=== PATIENT | female | born 1945 | race Caucasian/White ===

== ENCOUNTER 2022-03-02 07:23 | Emergency (ER) | payer MEDICARE, SELFPAY ==
[2022-03-02 07:28] VITALS: BP 186/80; PULSE 59; RESP 16; TEMP 36.6; O2SAT 96; BMI 25.0
--- NOTE | 2022-03-02 07:35 | XR_ITS ---
WS: [id number] Exam: XR shoulder LT min 2V* [id number] Date/Time of Exam: 03/02/2022 7:42 AM Reason For Exam: pain/deformity There is anterior inferior dislocation of the humeral head. No obvious fracture identified. Soft tiss ues are unremarkable. XR/XR shoulder LT min 2V* [id number] IMPRESSION: 1. Anterior inferior dislocation of the humeral head. No obvious fracture.
--- NOTE | 2022-03-02 07:36 | ED_ITS ---
HPI - Extremity Problem General: Chief complaint: Extremity Injury, Upper Stated complaint: FALL Time Seen by Provider: 03/02/22 07:35 Source: patient Mode of arrival: ambulatory History of Present Illness: 76-year-old female presents emergency room after a fall at home. She stumbled and slipped on a wet floor she fell attempted to break her fall with her left arm she is complaining of pain in her left shoulder. She has some chronic dizziness issues but she states that really was not why she fell. No other injury she did not strike her head she did not lose consciousness. She arrives via EMS having received intranasal fentanyl and having a sling applied in route. MD Complaint: extremity pain Onset (ago): minute(s) Pain Consistency: constant Location: left and upper extremity Quality: sharp Relieving factors: rest Exacerbating factors: range of motion and palpation Associated symptoms: Deny chest pain, fever(s) or rash Context: other (Fall) Review of Systems Const: Denies: fever(s), chills, body aches, change in appetite, fatigue or malaise ENMT: Denies: throat pain, ear or mastoid pain, nasal discharge or nasal congestion Card: Denies: chest pain, palpitations, irregular heart rhythm, edema, dyspnea on exertion or orthopnea Resp: Denies: dyspnea, productive cough or non-productive cough GI: Denies: abdominal pain, nausea, vomiting, hematemesis, coffee ground emesis, diarrhea, constipation, bloating, hematochezia or melena : Denies: flank pain, difficulty voiding, dysuria, urinary frequency or urinary urgency Skin/Breast: Denies: rash or pruritus [facility] PFSH: Medical History (Updated 03/12/22 @ 17:51 by Storm Contreras DO) Greater tuberosity of humerus fracture Shoulder pain Physical Exam Const: COMMON NORMALS: no acute distress GENERAL APPEARANCE: cooperative and comfortable ORIENTATION/CONSCIOUSNESS: Yes awake, Yes oriented to person, Yes oriented to place and Yes oriented to time HENMT: COMMON NORMALS: normocephalic and atraumatic HEAD & SCALP: normocephalic and atraumatic Resp: COMMON NORMALS: normal respiratory effort, No retractions, No use of accessory muscles and clear to auscultation bilaterally AUSCULTATION: clear to auscultation bilaterally Cardio: COMMON NORMALS: regular rate, regular rhythm and No murmurs present (Cardio) RATE: regular rate RHYTHM: regular rhythm GI: COMMON NORMALS: Soft to palpation and No hepatosplenomegaly present AUSCULTATION: Yes normoactive bowel sounds PALPATION: Yes Soft to palpation, No Tenderness to palpation present (GI), No Guarding due to palpation present (GI) and Yes No hepatosplenomegaly present Extremity: COMMON NORMALS: normal to inspection, capillary refill normal, no clubbing, cyanosis or edema, no calf tenderness and no pedal edema Neuro: SENSORIUM/ORIENTATION: Yes oriented to person, Yes oriented to place and Yes oriented to time Skin: COMMON NORMALS: no rashes or lesions noted GENERAL SKIN EXAM: no rashes or lesions noted Procedures Orthopedic Joint Reduction Joint #1: Time Out Performed: Yes Side: left Joint Reduction Location: shoulder Analgesia: procedural sedation Technique used: traction/counter-traction Post-reduction neuro exam: intact Post-reduction vascular: intact Post Reduction X-Ray Obtained: Yes Post Reduction X-Ray Results: reduced Splint Applied: Yes (Shoulder immobilizer) Patient Tolerated Procedure: well Procedural Sedation Indication: fracture/dislocation reduction Preparation: cardiac rehabilitation specialist applied, pulse oximeter, supplemental O2 applied, suction/airway equipment at bedside and IV secured Fentanyl: IV Midazolam: IV Patient Tolerated Procedure: well Complications: none Course Vital Signs: Vital signs: Vital Signs Temperature 97.8 F 03/02/22 07:28 Pulse Rate 71 03/02/22 10:33 Respiratory Rate 16 03/02/22 09:29 Blood Pressure 139/77 03/02/22 10:33 Pulse Oximetry 93 03/02/22 10:33 Oxygen Delivery Me thod 03/02/22 08:06 MDM - Extremity (Nontraumatic) Medical Decision Making Procedural sedation with traction countertraction along with manipulation of the humeral head was able to reduce. Postreduction there appears to be some cortical avulsions. Patient placed in a shoulder immobilizer and referred to orthopedics. We will also set her up for an MRI of the shoulder. Medical Records I reviewed the patient's medical records. Lab Data I reviewed the patient's lab results. Radiology Impressions Shoulder X-Ray 03/02/22 08:16 IMPRESSION: 1. Satisfactory reduction of previously reported anterior dislocation. 2. Small cortical fracture along the humeral head with several fragments. Discharge Plan Discharge Patient Disposition: Home Clinical Impression: Dislocation of shoulder region Condition: Stable Prescriptions: New tramadol 50 mg tablet 50 mg PO Q6H PRN (Reason: pain) Qty: 20 0RF No Action (DME) SLING. See Rx Instructions .ROUTE .MEDSUPPLY Qty: 1 0RF Rx Instructions: As directed prednisone 10 mg tablet See Rx Instructions .ROUTE .COMPLEX Rx Instructions: DIRECTED lisinopril 20 mg tablet 20 mg PO DAILY torsemide 10 mg tablet 10 mg PO DAILY tramadol 50 mg tablet 50 mg PO Q6H PRN (Reason: Pain) sodium bicarbonate 650 mg tablet 650 mg PO BID gabapentin 300 mg capsule 300 mg PO BEDTIME ergocalciferol (vitamin D2) 1,250 mcg (50,000 unit) capsule 1,250 mcg PO Q14D cyclobenzaprine 5 mg tablet 5 mg PO TID PRN (Reason: Muscle Spasm) metoprolol tartrate 25 mg tablet 25 mg PO BID Discharge Orders: Discharge ED (Routine); Ordered 03/02/22 Ordered By: Fernando Mcwilliams Referrals: [facility] [Other] Patient Instructions: Opioid Safety, Pain Management Activity Restrictions/Additional Instructions: Keep left arm in shoulder immobilizer until seen by orthopedics. Do not use left arm. Case management make arrangements for an MRI and follow-up with orthopedics. Coding Level of Care Code ED Algebra Tutor for Sheree Baca Exam Detailed
[2022-03-02 07:50] VITALS: RESP 18; O2SAT 100
[2022-03-02] MEDS: ondansetron 2 mg/ML SDV 2 mL 4 MG IVP (07:50)
[2022-03-02] MEDS: morphine 4 mg/mL SDV 1 mL IVP (07:50)
--- NOTE | 2022-03-02 08:00 | PC.PHAR ---
PT UNABLE TO VERIFY MEDS- NO CONTACTS AVAILABLE- MEDICATIONS VERIFIED USING EXTERNAL MED LIST
[2022-03-02 08:06] VITALS: BP 186/80; PULSE 69; RESP 14; RESP 18; O2SAT 100
[2022-03-02] MEDS: fentaNYL 50 mcg/mL INJ 2mL 25 MCG IVP (08:06)
[2022-03-02] MEDS: midazolam 1 mg/mL INJ 2 mL 3 MG IVP (08:06)
--- NOTE | 2022-03-02 08:16 | XR_ITS ---
WS: [id number] Exam: XR shoulder LT min 2V* [id number] Date/Time of Exam: 03/02/2022 8:17 AM Reason For Exam: post reduction Previously noted left shoulder dislocation has been reduced. Articular relationships at been restored . There is cortical fracture along the humeral head with several fracture fragments. AC kash nt arthrosis. XR/XR shoulder LT min 2V* [id number] IMPRESSION: 1. Satisfactory reduction of previously reported anterior dislocation. 2. Small cortical fracture along the humeral head with several fragme nts.
--- NOTE | 2022-03-02 08:45 | PC.NURSE ---
VERSED DOSE CHANGED FROM 5MG TO 3MG VERBALLY BY DR. SANCHEZ AT BEDSIDE. FENTANYL DOSE CHANGED FROM 100MCG TO 25MCG VERBALLY BY DR. SANCHEZ AT BEDSIDE. MEDICATIONS WASTED AFTER SEDATION PROCEDURE. MEDICATIONS WASTED WITH Dustin SCHILLING RN PHARMACY NOTIFIED.
[2022-03-02 08:51] VITALS: BP 130/80; PULSE 70; O2SAT 97
[2022-03-02 09:29] VITALS: BP 115/83; PULSE 66; RESP 16; O2SAT 100
[2022-03-02 10:33] VITALS: BP 139/77; PULSE 71; O2SAT 93
--- NOTE | 2022-03-03 13:52 | DCPLANNER ---
Addendum entered by Barb Romeo 05/17/22 12:15: MRI was cancelled Addendum entered by Barb Romeo 03/31/22 05:44: Patient had a follow up appointment scheduled for 03.08.[address] Contreras at ortho - patient did attend appointment. Original Note: market manager had message to schedule a follow up appointment for patient with ortho. market manager sent patients information to the front office staff at ortho. Patients information will be printed and reviewed. Clinic will call patient with appointment information. market manager also had message to schedule an outpatient MRI for patient. market manager faxed signed order to centralized scheduling, who will call patient with appointment.
== END 2022-03-02 10:25 | disposition home or self-care (01) ==
PROVIDERS: Emergency Provider Family Medicine
DX: S43.005A Unspecified dislocation of left shoulder joint, initial encounter (principal); W01.0XXA Fall on same level from slipping, tripping and stumbling without subsequent striking against object, initial encounter
CPT/HCPCS: 23650; 73030; 96374; 96375; 99285; J2250; J2270; J2405; J3010

== ENCOUNTER → 2022-03-08 10:38 | Outpatient (BNVA) | payer MEDICARE, SELFPAY | PROVIDERS: Visit Provider Student in an Organized Health Care Education/Training Program | DX: S43.002A Unspecified subluxation of left shoulder joint, initial encounter (principal); S42.252A Displaced fracture of greater tuberosity of left humerus, initial encounter for closed fracture; W18.39XA Other fall on same level, initial encounter | CPT/HCPCS: 73020 ==

== ENCOUNTER 2022-03-08 14:49 | Outpatient (CLI) | payer MEDICARE, SELFPAY | END 2022-03-08 14:50 | disposition home or self-care (01) | LOC: SPT 14:50 | PROVIDERS: Visit Provider Student in an Organized Health Care Education/Training Program | DX: Z46.89 Encounter for fitting and adjustment of other specified devices (principal); S43.005D Unspecified dislocation of left shoulder joint, subsequent encounter; X58.XXXD Exposure to other specified factors, subsequent encounter | CPT/HCPCS: 97760; 99204; A4565 ==

== ENCOUNTER → 2022-03-22 10:16 | Outpatient (BNVA) | payer MEDICARE, SELFPAY | PROVIDERS: Visit Provider Student in an Organized Health Care Education/Training Program | DX: S42.252A Displaced fracture of greater tuberosity of left humerus, initial encounter for closed fracture (principal); S43.002A Unspecified subluxation of left shoulder joint, initial encounter; X58.XXXA Exposure to other specified factors, initial encounter | CPT/HCPCS: 73030; 99213 ==

== ENCOUNTER → 2022-04-12 08:07 | Outpatient (BNVA) | payer MEDICARE, SELFPAY | PROVIDERS: Visit Provider Student in an Organized Health Care Education/Training Program | DX: S42.252A Displaced fracture of greater tuberosity of left humerus, initial encounter for closed fracture (principal); S43.002A Unspecified subluxation of left shoulder joint, initial encounter; X58.XXXA Exposure to other specified factors, initial encounter | CPT/HCPCS: 73030; 99213 ==

== ENCOUNTER → 2022-06-10 09:33 | Outpatient (BNVA) | payer MEDICARE, SELFPAY | PROVIDERS: Visit Provider Student in an Organized Health Care Education/Training Program | DX: S42.252A Displaced fracture of greater tuberosity of left humerus, initial encounter for closed fracture (principal); M75.101 Unspecified rotator cuff tear or rupture of right shoulder, not specified as traumatic; X58.XXXA Exposure to other specified factors, initial encounter | CPT/HCPCS: 73030; 99213 ==

== ENCOUNTER 2022-07-06 09:56 | Outpatient (CLI) | payer MEDICARE, SELFPAY ==
--- NOTE | 2022-07-06 09:51 | MR_ITS ---
WS: [id number] EXAMINATION: MR shoulder LT wo con* [id number] ORDER DATE: 07/06/2022 10:33 AM COMPARISON: None. HISTORY: humerus fracture CONTRAST: None. TECHNIQUE: Axial T2 STAR, coronal proton density fat sat, sagittal T2 fat sat, sagittal proton densit y fat sat, axial proton density fat sat, coronal T2 fat sat, and coronal T1 performed. After contrast , axial T1 fat sat, coronal T1 fat sat, and sagittal T1 fat sat were performed. FINDINGS: Previously described avulsion involving the greater tuberosity. Avulsed fragment displaced into the s ubacromial space deep to the AC joint. This is similar in appearance to the prior radiographs. Modera te to advanced degenerative arthritis AC joint with downsloping of the acromion. Severe narrowing of the distal subacromial space. Complete high-grade tear of the supraspinatus. No normal fibers visuali zed distally. Retraction to the AC joint. High-grade tear of the infraspinatus tendon. Atrophy of the supraspinatus and infraspinatus muscle be llies. Normal teres minor. Distal subscapularis appears intact with tendinopathy. Biceps tendon is in tact within the bicipital groove. Medial dislocation of the biceps tendon from the bicipital groove p roximally. Partial-thickness intrasubstance tear involving the intra-articular biceps tendon. Degenerative frayi ng of the glenoid labrum. Normal bone marrow signal in the glenoid. MR/MR shoulder LT wo con* [id number] IMPRESSION: 1. Displaced avulsion fracture greater tuberosity. Fragment displaced into in the subacromial space deep to the AC joint unchanged since the prior radiograph s. 2. High-grade complete appearing tear distal supraspinatus and infraspinatus w ith loss of the subacromial space. 3. Moderate degenerative arthritis AC joint with downsloping acromion with mil d edema. 4. Tendinopathy in the subscapularis. 5. Medial dislocation of the biceps tendon from the bicipital groove with part ial intrasubstance tear intra-articular biceps tendon
== END 2022-07-06 09:57 | disposition home or self-care (01) ==
LOC: RAD 09:57
PROVIDERS: PCP Family Medicine; Visit Provider Student in an Organized Health Care Education/Training Program
DX: S42.122D Displaced fracture of acromial process, left shoulder, subsequent encounter for fracture with routine healing (principal); X58.XXXD Exposure to other specified factors, subsequent encounter; M75.122 Complete rotator cuff tear or rupture of left shoulder, not specified as traumatic; M19.012 Primary osteoarthritis, left shoulder
CPT/HCPCS: 73221

== ENCOUNTER → 2022-07-29 08:24 | Outpatient (BNVA) | payer MEDICARE, SELFPAY | PROVIDERS: PCP Family Medicine; Visit Provider Student in an Organized Health Care Education/Training Program | DX: S42.252A Displaced fracture of greater tuberosity of left humerus, initial encounter for closed fracture (principal); M75.102 Unspecified rotator cuff tear or rupture of left shoulder, not specified as traumatic; X58.XXXA Exposure to other specified factors, initial encounter | CPT/HCPCS: 99214 ==

== ENCOUNTER 2022-09-13 15:45 | Outpatient (CLI) | payer MEDICARE, SELFPAY ==
--- NOTE | 2022-09-13 16:00 | CT_ITS ---
WS: [id number] NONCONTRAST CT OF THE LEFT SHOULDER. TECHNIQUE: Noncontrast CT LEFT shoulder with coronal and sagittal reformatted images. CLINICAL INFORMATION: S42.253A - Displaced fracture of greater tuberosity of un... COMPARISON: MRI July 06, 2022 DLP: 348.[address] scans at [facility] use at least one of these dose optimization techniques: automated e xposure control; mA and/or kV adjustment per patient size (includes targeted exams where dose is matc hed to clinical indication); or iterative reconstruction. FINDINGS: Moderate degenerative arthritis AC joint with narrowing of the subacromial space. Mild downsloping of the acromion. Rotator cuff tears as described on the prior MRI. Avulsion fracture of the greater tub erosity displaced into the subacromial space at the level of the glenohumeral joint. Displaced fragme nt measures 2.8 cm. Small joint effusion. Distal clavicle appears normal. Scapula appears normal. Normal bony glenoid. No rmal coracoid. Visualized LEFT ribs are normal. Slight atelectasis or fibrosis LEFT lower lobe. Simmons otomy. Aortic calcification. CT/CT shoulder LT wo con* [id number] IMPRESSION: 1. Avulsion fracture greater trochanter displaced into the subacromial space a t the level of the glenohumeral joint measuring 2.8 cm. 2. No other visualized fractures. 3. Rotator cuff tears as described on the recent MRI. 4. No other acute findings.
== END 2022-09-13 15:46 | disposition home or self-care (01) ==
PROVIDERS: PCP Family Medicine; Visit Provider Student in an Organized Health Care Education/Training Program
DX: S42.252A Displaced fracture of greater tuberosity of left humerus, initial encounter for closed fracture (principal); X58.XXXA Exposure to other specified factors, initial encounter
CPT/HCPCS: 73200

== ENCOUNTER 2022-09-21 10:18 | Day surgery (SDC) | payer MEDICARE, SELFPAY ==
[2022-09-16 09:09] VITALS: BMI 24.3
--- NOTE | 2022-09-16 09:15 | ECG_ITS ---
[facility] Test Date: 2022-09-16 Pat Name: Geno Cisneros Department: Room: Gender: Female Medication Specialist: : 1945 Requested By: Federico Hernandez Order Number: [id number] Brett MD: Terrance Liu M.D. Measurements Intervals [place] Rate: 65 P: 35 [place]: 188 QRS: 0 QRSD: 90 T: 59 QT: 417 QTc: 436 Interpretive Statements SINUS RHYTHM LEFT VENTRICULAR HYPERTROPHY AND ST-T CHANGE [VOLTAGE CRITERIA PLUS ST/T ABNORMALITY] POSSIBLE INFERIOR MYOCARDIAL INFARCTION , OF INDETERMINATE AGE [30 ms Q WAVE IN II/aVF] No previous ECG available for comparison Electronically Signed On 09-16-2022 11:59:56 CDT by Terrance Liu M.D. [email or web address]
[2022-09-16 09:54] LABS: Basophils # 0.1 10^3/uL (0.0-0.1); Basophils % 0.6 %; Eosinophils # 0.2 10^3/uL (0.0-0.8); Eosinophils % 2.2 %; Hematocrit 41.8 % (37.0-47.0); Hemoglobin 13.1 g/dL (11.5-15.3); Lymphocytes # 2.9 10^3/uL (0.8-4.8); Lymphocytes % 32.4 %; Mean Corpuscular HGB Conc 31.3 g/dL (30.0-36.0); Mean Corpuscular Volume 92.7 fl (81-99); Mean Platelet Volume 9.5 fL (7.4-10.4); Monocytes # 0.7 10^3/uL (0.2-0.9); Monocytes % 8.2 %; Neutrophils # 5.02 10^3/uL (1.8-7.7); Neutrophils % 56.2 %; Nucleated Red Blood Cells % 0 %; Platelet Count 280 10^3/cmm (130-400); Red Blood Count 4.51 10^6/uL (4.1-5.3); Red Cell Distribution Width 13.3 % (12.1-15.1); White Blood Count 8.9 10^3/uL (4.0-10.0)
[2022-09-16 10:10] LABS: Anion Gap 16.3 (5-19); Blood Urea Nitrogen 32 mg/dL (8-23); Calcium 9.7 mg/dL (8.5-10.5); Carbon Dioxide 28 mmol/L (22-29); Chloride 103 mmol/L (98-107); Glucose 99 mg/dL (65-115); Osmolality Calculated 301 mOsm/kg (285-295); Potassium 5.3 mmol/L (3.5-5.1); Sodium 142 mmol/L (136-145)
--- NOTE | 2022-09-16 10:26 | ANES.PREANE2 ---
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 several days Was Beta Letty taken within 24 hours: Yes Was Clonidine taken within 24 hours: N/A Social No alcohol and No tobacco Exam alert, oriented x 3, clear to auscultation bilaterally and regular rate & rhythm Airway Submandibular: within normal limits Cervical ROM: within normal limits Mallampati: Class II Dentition: false CV/HEM Hypertension AVR Chronic Renal Insufficiency Anesthetic Plan ASA status: 3 Anesthesia: General and Regional (specify below) (Interscalene nerve blk) Medications/Allergies Home Medications Medication Instructions Recorded Confirmed Last Taken Type ergocalciferol (vitamin D2) 1,250 1,250 mcg PO Q14D 03/02/22 09/16/22 09/12/22 History mcg (50,000 unit) capsule gabapentin 300 mg capsule 300 mg PO BID PRN Pain 03/02/22 09/16/22 09/02/22 History lisinopril 20 mg tablet 20 mg PO DAILY 03/02/22 09/16/22 09/16/22 History metoprolol tartrate 25 mg tablet 25 mg PO BID 03/02/22 09/16/22 09/16/22 History sodium bicarbonate 650 mg tablet 650 mg PO BID 03/02/22 09/16/22 09/16/22 History torsemide 10 mg tablet 10 mg PO DAILY 03/02/22 09/16/22 09/16/22 History SLING. #1 ea 03/08/22 07/29/22 Unknown Rx acetaminophen 650 mg 1,300 mg PO Q12H PRN Pain 09/16/22 09/16/22 09/16/22 History tablet,extended release aspirin 81 mg chewable tablet 81 mg PO DAILY 09/16/22 09/16/22 09/09/22 History (Aspirin Childrens) magnesium 250 mg tablet 250 mg PO DAILY 09/16/22 09/16/22 09/16/22 History Allergies Allergy/AdvReac Type Severity Reaction Status Date / Time hydrocodone Allergy ADR-Nausea Verified 09/16/22 09:01 Sulfa (Sulfonamide Allergy ALGY-Hives Verified 09/16/22 09:01 Antibiotics) [facility] Anesthesia Medical History Greater tuberosity of humerus fracture Rotator cuff tear Shoulder pain Data Anesthesia 09/16/22 09:45 09/16/22 09:45 Short CBC 09/16/22 Range/Units 09:45 WBC 8.9 (4.0-10.0) 10^3/uL Hgb 13.1 (11.5-15.3) g/dL Hct 41.8 (37.0-47.0) % MCV 92.7 (81-99) fl Plt Count 280 (130-400) 10^3/cmm Neut % (Auto) 56.2 % Neut # (Auto) 5.02 (1.8-7.7) 10^3/uL BMP 09/16/22 09:45 Sodium 142 Potassium 5.3 H Chloride 103 Carbon Dioxide 28 BUN 32 H Creatinine 1.8 H Glucose 99 Calcium 9.7 Cardiac Studies: No Data to Display
[2022-09-21 10:44] VITALS: BP 207/99; PULSE 62; RESP 16; TEMP 36.6; O2SAT 99
[2022-09-21 11:46] LABS: Add Urine Microscopic? YES; Bilirubin Urine Neg (Negative); Blood Urine Neg (Negative); Glucose Urine UA Norm (Normal); Ketones Urine Negative (Negative); Leukocyte Esterase Urine 2+ (Negative); Nitrate Urine Negative (Negative); Protein Urine Neg (Negative); Urine Appearance Cloudy (CLEAR); Urine Color Yellow (Yellow); Urobilinogen Urine Norm (Negative); pH Urine 6 (5-7)
[2022-09-21 11:47] LABS: Bacteria Urine 1+ /hpf; RBC Urine 0-4 /hpf (0-2); Red Blood Cell Casts Urine 0-4 /lpf; Squamous Epithelial Cell Urine 0-4 /hpf (0-5); WBC Urine 25-40 /hpf (0-5)
[2022-09-21 11:48] LABS: Add Urine Culture? Yes
[2022-09-21] MEDS: sodium chloride 0.9% 1,000 ML 30 ML IV (12:12)
[2022-09-21] MEDS: acetaminophen 1,000 MG/100 ML PIGGYBACK 400 MG IV (12:13)
[2022-09-21 12:19] LABS: Anion Gap 17.6 (5-19); Blood Urea Nitrogen 31 mg/dL (8-23); Calcium 9.8 mg/dL (8.5-10.5); Carbon Dioxide 24 mmol/L (22-29); Chloride 102 mmol/L (98-107); Glucose 90 mg/dL (65-115); Osmolality Calculated 294 mOsm/kg (285-295); Potassium 4.6 mmol/L (3.5-5.1); Sodium 139 mmol/L (136-145)
--- NOTE | 2022-09-21 13:31 | PM.MISC ---
Miscellaneous Note Purpose of Documentation: Patient presented today for left reverse total shoulder arthroplasty secondary to now a chronic rotator cuff arthropathy condition after patient had sustained a dislocation and small avulsion of the greater tuberosity. She unfortunately has failed conservative approach and at this point time she wanted to proceed with a more permanent and predictable treatment algorithm and given her age through shared decision making she and I both agreed to proceed with a left reverse total shoulder arthroplasty. She is cleared to the preoperative process however this morning her UA definitely had findings concerning for urinary tract infection she understands the potential risks with this ultimately she was hoping to proceed anyway however she understood my recommendation at this point time would would recommend is postponing her surgery getting her treated on antibiotics will be tailored to her cultures and then get this taken care of within the next several weeks after she has been appropriately treated. She has been asymptomatic and states that she usually always has some form of UTI but at this point time I feel in her best interest that we at least treat this preemptively prior to implanting prosthesis. She understands and agrees to proceed all questions answered. She was discharged from the preoperative area will be sent a prescription pending her urine cultures. Patient understands and agrees with current plan. All questions answered.
--- NOTE | 2022-09-21 13:37 | SUR.PREOP ---
Addendum entered by Lul Roberts RN 09/21/22 13:39: PATIENT VERBALIZED UNDERSTANDING. ARM SLING APPLIED TO LEFT ARM. DISCHARGED IN STABLE CONDITION.WILL FOLLOW UP WITH DOCTOR RIDER DIRECTED. Original Note: SURGERY CANCELLED BY DOCTOR RIDER. PLAN OF CARE EXPLAINED TO PATIENT AND BY DOCTOR RIDER. PATIENT VERBALISEED
--- NOTE | 2022-09-21 14:31 | ANES.PROC ---
Anesthesia Procedures Procedure/Date: 09/21/22 Nerve Block ^: Nerve Block 1: Main Anesthesia: general anesthesia Time Out Performed: Yes Consent: requested by attending/covering physician, from patient, from other, risks and benefits reviewed and patient agrees to proceed Nerve block location: interscalene (L) Anesthesia monitors applied: pulse oximetry, EKG, BP cuff and oxygen Nerve block position: semi sitting Anesthetic Used: ropivicaine 0.5% (20 cc) and with decadron (4 mg) Ultrasound used to: recognize landmarks, visualize and ID brachial plexus, in supraclavicular region and visualize and ID interscalene groove Nerve Stimulator Used?: No Interscalene/Femoral BLK: 2 stimuplex 22 g needle used for position and inplane approach, visualize local anesthetic spread and no vascular puncture identified Injection: neg aspiration of heme Patient Tolerated Procedure: well Complications: none Additional Comments: Case re-scheduled due to UA results after block performed. Discussed duration of block with patient, its indication and purpose for post-op pain. Today it will provide benefit of some pain control in her aching shoulder despite surgery not proceeding today. Will send her home with sling to support arm.
== END 2022-09-21 13:37 | disposition home or self-care (01) ==
PROVIDERS: Anesthesiology; PCP Family Medicine; Visit Provider Student in an Organized Health Care Education/Training Program
PROC: (CPT 23472; principal; 2022-09-21 11:50)
DX: X58.XXXA Exposure to other specified factors, initial encounter (principal); Z53.8 Procedure and treatment not carried out for other reasons; N18.9 Chronic kidney disease, unspecified; Z79.82 Long term (current) use of aspirin; N39.0 Urinary tract infection, site not specified; S42.252A Displaced fracture of greater tuberosity of left humerus, initial encounter for closed fracture
CPT/HCPCS: 36415; 80048; 81001; 85025; 86850; 86900; 87077; 87086; 87186; 93005; J0131; J1100; J2405; J2704; J3490; J7030

== ENCOUNTER 2022-10-10 09:41 | Outpatient (CLI) | payer MEDICARE, SELFPAY ==
[2022-10-10 10:25] LABS: Add Urine Microscopic? NO; Charge for UA Resulting for Rev
[2022-10-10 10:42] LABS: Bilirubin Urine Neg (Negative); Blood Urine Neg (Negative); Glucose Urine UA Norm (Normal); Ketones Urine Negative (Negative); Leukocyte Esterase Urine Negative (Negative); Nitrate Urine Negative (Negative); Protein Urine Neg (Negative); Urine Appearance Clear (CLEAR); Urine Color Straw (Yellow); Urobilinogen Urine Norm (Negative); pH Urine 7 (5-7)
== END 2022-10-10 09:42 | disposition home or self-care (01) ==
PROVIDERS: PCP Family Medicine; Visit Provider Student in an Organized Health Care Education/Training Program
DX: N39.0 Urinary tract infection, site not specified (principal)
CPT/HCPCS: 81003

== ENCOUNTER 2022-10-26 14:30 | Observation (INO) | payer MEDICARE, SELFPAY ==
[2022-10-19 08:15] VITALS: BMI 24.3
[2022-10-19 08:58] LABS: Anion Gap 16.1 (5-19); Blood Urea Nitrogen 48 mg/dL (8-23); Calcium 9.9 mg/dL (8.5-10.5); Carbon Dioxide 26 mmol/L (22-29); Chloride 100 mmol/L (98-107); Glucose 96 mg/dL (65-115); Osmolality Calculated 296 mOsm/kg (285-295); Potassium 5.1 mmol/L (3.5-5.1); Sodium 137 mmol/L (136-145)
[2022-10-19 09:14] LABS: Add Urine Microscopic? YES; Bilirubin Urine Neg (Negative); Blood Urine Neg (Negative); Glucose Urine UA Norm (Normal); Ketones Urine Negative (Negative); Leukocyte Esterase Urine Trace (Negative); Nitrate Urine Negative (Negative); Protein Urine Neg (Negative); RBC Urine RARE /hpf (0-2); Specific Gravity, Urine 1.015 (1.005-1.030); Urine Appearance Clear (CLEAR); Urine Color Light yellow (Yellow); Urobilinogen Urine Norm (Negative); pH Urine 5 (5-7)
[2022-10-19 09:15] LABS: Add Urine Culture? No; Bacteria Urine TRACE /hpf; Hyaline Casts Urine 0-4 /lpf; Mucus Urine N /hpf; Squamous Epithelial Cell Urine RARE /hpf (0-5)
--- NOTE | 2022-10-19 17:12 | P.ANESASSM_ITS ---
Pre-Anesthetic Assessment Height/Weight: Height 1.73 m Weight 72.575 kg Operation Date: 10/26/22 10:00 Proposed Procedures p left reverse total shoulder arthroplasty: [id number]:S42.253A(Left) - Storm Contreras DO Familial anesthetic complications: none Was Beta Letty taken within 24 hours: Yes Was Clonidine taken within 24 hours: N/A Social No alcohol and No tobacco Exam alert, oriented x 3, clear to auscultation bilaterally and regular rate & rhythm Airway Submandibular: within normal limits Cervical ROM: within normal limits Mallampati: Class II Dentition: false CV/HEM Hypertension Anesthetic Plan ASA status: 2 Anesthesia: General and Regional (specify below) (Interscalene nerve blk) Medications/Allergies Home Medications Medication Instructions Recorded Confirmed Last Taken Type ergocalciferol (vitamin D2) 1,250 1,250 mcg PO Q14D 03/02/22 10/19/22 10/06/22 History mcg (50,000 unit) capsule gabapentin 300 mg capsule 300 mg PO BID PRN Pain 03/02/22 10/19/22 10/14/22 History lisinopril 20 mg tablet 20 mg PO DAILY 03/02/22 10/19/22 10/18/22 History metoprolol tartrate 25 mg tablet 25 mg PO BID 03/02/22 10/19/22 10/19/22 History sodium bicarbonate 650 mg tablet 650 mg PO BID 03/02/22 10/19/22 10/19/22 History torsemide 10 mg tablet 10 mg PO DAILY 03/02/22 10/19/22 10/19/22 History SLING. #1 ea 03/08/22 07/29/22 Unknown Rx acetaminophen 650 mg 1,300 mg PO Q12H PRN Pain 09/16/22 10/19/22 09/20/22 History tablet,extended release aspirin 81 mg chewable tablet 81 mg PO DAILY 09/16/22 10/19/22 10/11/22 History (Aspirin Childrens) magnesium 250 mg tablet 250 mg PO DAILY 09/16/22 10/19/22 10/19/22 History Allergies Allergy/AdvReac Type Severity Reaction Status Date / Time azithromycin [From Zithromax] Allergy ADR-Vomitin Verified 10/19/22 08:13 g hydrocodone Allergy ADR-Nausea Verified 09/16/22 09:01 Sulfa (Sulfonamide Allergy ALGY-Hives Verified 09/16/22 09:01 Antibiotics) [facility] Anesthesia Medical History Greater tuberosity of humerus fracture Rotator cuff tear Shoulder pain Data Anesthesia 10/19/22 08:20 BMP 10/19/22 08:20 Sodium 137 Potassium 5.1 Chloride 100 Carbon Dioxide 26 BUN 48 H Creatinine 1.9 H Glucose 96 Calcium 9.9 Urine 10/19/22 Range/Units 08:30 Urine Color Light yellow (Yellow) Urine Appearance Clear (CLEAR) Urine pH 5 (5-7) Ur Specific [place] 1.015 (1.005-1.030) Urine Protein Neg (Negative) Urine Glucose (UA) Norm (Normal) Urine Ketones Negative (Negative) Urine Nitrate Negative (Negative) Urine Bilirubin Neg (Negative) Ur Leukocyte Esterase Trace H (Negative) Urine RBC Rare (0-2) /hpf Urine WBC 5-10 H (0-5) /hpf Cardiac Studies: No Data to Display
[2022-10-26] VITALS (15 sets, daily range): BP systolic 144–221; BP diastolic 71–105; PULSE 56–67; RESP 16–18; TEMP 36.1–36.6; O2SAT 91–100
[2022-10-26] MEDS: ketorolac 30 mg/mL INJ IVP (10:00)
[2022-10-26] MEDS: acetaminophen 1,000 MG/100 ML PIGGYBACK 400 MG IV (10:00)
[2022-10-26] MEDS: sodium chloride 0.9% 1,000 ML 30 ML IV (10:00)
--- NOTE | 2022-10-26 11:15 | PM.HP ---
Providers/Chief Complaint Admitting Physician: Diane Villanueva/orthopedic surgery Primary Care Provider: Pablo Bro Chief Complaint: [id number] History of Present Illness Geno Cisneros is a 76 year old female he is failed conservative treatment after having a dislocation and a small avulsion fracture of the greater tuberosity she is has significant retraction of her rotator cuff tendons as well as significant atrophy. She has severe lack of range of motion and pain we tried a conservative approach with therapy. At this point time she like a more permanent option we talked in detail about her treatment options do not feel as though an arthroscopic procedure will offer her much benefit given the retraction and atrophy which we talked about in detail at this point time she would like to have something a more permanent fix which I think her next best option would be a left reverse total shoulder arthroplasty. We talked about this in great detail she understands risk benefits complication alternatives with surgery understanding risk of surgery she elects to proceed with left reverse total shoulder arthroplasty. She is been worked up in the outpatient setting and cleared for surgery. Review of Systems General: Reports: 10 or more systems reviewed and unremarkable except in HPI and below Medications/Allergies Home Medications Medication Instructions Recorded Confirmed Last Taken Type ergocalciferol (vitamin D2) 1,250 1,250 mcg PO Q14D 03/02/22 10/19/22 10/12/22 History mcg (50,000 unit) capsule gabapentin 300 mg capsule 300 mg PO BID PRN Pain 03/02/22 10/19/22 10/19/22 History lisinopril 20 mg tablet 20 mg PO DAILY 03/02/22 10/19/22 10/25/22 History metoprolol tartrate 25 mg tablet 25 mg PO BID 03/02/22 10/19/22 10/25/22 History sodium bicarbonate 650 mg tablet 650 mg PO BID 03/02/22 10/19/22 10/25/22 History torsemide 10 mg tablet 10 mg PO DAILY 03/02/22 10/19/22 10/25/22 History SLING. #1 ea 03/08/22 07/29/22 Unknown Rx acetaminophen 650 mg 1,300 mg PO Q12H PRN Pain 09/16/22 10/26/22 10/25/22 History tablet,extended release aspirin 81 mg chewable tablet 81 mg PO DAILY 09/16/22 10/19/22 10/11/22 History (Aspirin Childrens) magnesium 250 mg tablet 250 mg PO DAILY 09/16/22 10/19/22 10/25/22 History Allergies Allergy/AdvReac Type Severity Reaction Status Date / Time azithromycin [From Zithromax] Allergy ADR-Vomitin Verified 10/26/22 09:25 g hydrocodone Allergy ADR-Nausea Verified 10/26/22 09:25 Sulfa (Sulfonamide Allergy ALGY-Hives Verified 10/26/22 09:25 Antibiotics) PFSH Acute PFSH: Medical History Greater tuberosity of humerus fracture Rotator cuff tear Shoulder pain Vitals/I&O/Wt Last Vital Signs Temp 97.7 F 10/26/22 09:28 Pulse 66 10/26/22 09:28 Resp 18 10/26/22 09:28 BP 221/101 10/26/22 09:28 Pulse Ox 97 10/26/22 09:28 O2 Del Method Room Air 10/26/22 09:36 10/25/22 10/26/22 10/26/22 22:59 06:59 14:59 Intake Total 1100 / 1100 Balance 1100 / 1100 Physical Exam Narrative: Examination left shoulder demonstrates no swelling or ecchymosis to the left shoulder.? No tenderness to palpation.? Decreased active range of motion only able to forward flex to roughly 45 degrees.? She has normal elbow range of motion. Able to passively range her up to 170 degrees but she does have some discomfort at extreme end range of motion. axillary nerve motor and sensation intact.? Distal pulses palpable.? Radial/ulnar/median nerve distribution intact.? Patient out of sling.? Unable to perform a Sandhya's test, positive drop arm test.? Weakness with external rotation with elbows at the side. Data 10/19/22 08:20 Other Labs: She was canceled originally secondary to a UTI she was treated appropriately and had appropriate response to treatment and a clean UA with asymptomatic urine A&P Assessment and plan (1) Rotator cuff arthropathy of left shoulder: Plan Patient understands the risk benefits complication alternatives with surgery at this point time she is failed conservative treatment and she agrees to proceed with a left reverse total shoulder arthroplasty. All questions answered. Attestations Medical Necessity Statement*: Postoperative care left reverse total shoulder arthroplasty Coding Level of Care Code Acute Code for Chg Fwd Diagnoses Rotator cuff arthropathy of left shoulder M12.812 Time Spent (min) 30
[2022-10-26] MEDS: ceFAZolin 2,000 MG in sodium chloride 0.9% (plus) 50 ML 100 MG IV ×2 (11:28→19:17)
--- NOTE | 2022-10-26 12:22 | P.ANESUD_ITS ---
Pre-Anesthetic Update Pre-Anesthetic Assessment: Date of Surgery/Procedure: 10/26/22 Preop Criss gnosis: Left shoulder rotator cuff arthropathy Proposed Procedure: Operation Date: 10/26/22 11:20 Proposed Procedures p Total Reverse Shoulder Arthroplasty(Left) - Storm Contreras, DO Any changes to Pre-Anesthetic Assessment?: No Last Intake: Intake Last Liquid Date 10/25/22 Last Liquid Time 22:00 Last Solid Date 10/25/22 Last Solid Time 22:00 Labs Last 48hrs: Blood Bank 10/26/22 09:45 Blood Type O Positive Rho(D) Type Positive Antibody Screen Negative Vitals: Temperature 97.7 F 10/26/22 09:28 Temperature Source Temporal Artery S can 10/26/22 09:28 Pulse Rate 66 10/26/22 09:28 Respiratory Rate 18 10/26/22 09:28 Blood Pressure 221/101 10/26/22 09:28 Blood Pressure Do n 141 10/26/22 09:28 Pulse Oximetry 97 10/26/22 09:28 Oxygen Delivery Me thod Room Air 10/26/22 09:36 Exam: Pre-Anes Outpt Exam: alert, oriented x 3, clear to auscultation bilaterally and regular rate & rhythm Cardiac Studies: No Data to Display Anesthesia Procedures Nerve Block: Nerve Block 1: Main Anesthesia: general anesthesia Time Out Performed: Yes Consent: requested by attending/covering physician, from patient, risks and benefits reviewed and patient agrees to proceed Nerve block location: interscalene (left) Anesthesia monitors applied: pulse oximetry, EKG, BP cuff and oxygen Nerve block position: semi sitting Anesthetic Used: ropivicaine 0.5% Amount of anesthesia used (mL): 30 Ultrasound used to: recognize landmarks and visualize and ID brachial plexus Nerve Stimulator Used?: No Interscalene/Femoral BLK: 2 stimuplex 22 g needle used for position and inplane approach Injection: neg aspiration of heme Patient Tolerated Procedure: well Complications: none
[2022-10-26] MEDS: vancomycin 1,000 MG SDV 1000 MG XX (12:28)
--- NOTE | 2022-10-26 14:15 | XR_ITS ---
WS: [id number] EXAMINATION: XR shoulder LT min 2V* [id number] REASON FOR EXAM: Postop left reverse total shoulder COMPARISON: None available. ORDER DATE: 10/26/2022 2:41 PM TECHNIQUE: 3 views of the left shoulder were obtained. X-RAY FINDINGS: No fractures or dislocations. There is a reversed left shoulder prosthesis in place. Degenerative changes. At the acromioclavicular joint is unremarkable. Limited visualization of the adjacent hemithorax is r emarkable for postsurgical mediastinal change and left pleural effusion with atelectasis left lower l obe. XR/XR shoulder LT min 2V* [id number] IMPRESSION: No acute change at this time..
--- NOTE | 2022-10-26 14:16 | PM.OP2 ---
Brief Operative Note Date of procedure: 10/26/22 Pre-op diagnosis: Left shoulder rotator cuff arthropathy Post-op diagnosis: same Procedure Done: 1. Left reverse total shoulder arthroplasty 2. Left shoulder biceps tenodesis Surgeon: Storm Contreras Estimated blood loss (mL): 50 Complications: None Post-op Plan: Patient taken to PACU in stable condition recovering well. Received postoperative x-rays. Will be admitted to the floor postoperatively. Internal medicine on board for medical management. Patient has dara dressing on in place will be left on for 7 days postoperatively. Nonweightbearing left upper extremity maintain sling. Encourage elbow and wrist range of motion. No shoulder range of motion at this time. Will receive appropriate discharge instruction as well as pain medication and DVT prophylaxis postoperatively. Patient receive appropriate postoperative DVT prophylaxis and pain medication PT/OT postoperative antibiotics postoperative TXA. Orthopedics will continue to follow on the floor. Plan for likely discharge home tomorrow. Condition: stable Disposition: floor Coding Level of Care Code Acute Code for Sheree Fwaniyah
--- NOTE | 2022-10-26 14:31 | P.OP_ITS ---
Operative Report Date of procedure: October 26, 2022 Pre-op diagnosis: Preop Diagnosis Left shoulder rotator cuff arthropathy Procedure: Post-op diagnosis: Same Procedure done: Left reverse total shoulder arthroplasty Left shoulder biceps tenodesis Implants: Patient-specific [employer] reverse total shoulder 3D printing guides [employer] reverse total shoulder arthroplasty comprehensive system Size 12 mm mini humeral stem 36 mm glenosphere diameter standard offset Glenosphere mini baseplate Central screw?6.5 mm by 25 mm Fixed locking screws (25 mm, 30 mm, 15 mm, 15 mm) Standard mini humeral tray with +0 mm polyethylene thickness Surgeon: Storm Contreras DO Estimated blood loss: 50 mL IV fluids: 800 mL Urine output: see anesthesia record Complications: None Findings: See operative report narrative Condition: stable Disposition: floor Brief History: Patient is a pleasant 76-year-old female who who was treated conservatively after a anterior dislocation she had a small avulsion of her greater tuberosity with retraction we talked about treatment options and she attempted conservative approach worked well with therapy got to where she has no pain however she has lost a substantial amount of her function. She has been unable to regain her motion up over her head we worked up in the outpatient setting at this point time she is not satisfied with her results with a conservative approach she has had some fracture fragment resorption of the greater tuberosity there is atrophy of the muscle and this is retracted significantly. Ultimately at this point time we talked about her treatment options and through shared decision making she like a more permanent fix and really at this point in time she has had superior migration of the humeral head and findings now consistent with a left shoulder rotator cuff arthropathy. As a result I think her best treatment option would be a left reverse total shoulder arthroplasty we talked about this in detail and through shared decision making she like to proceed with surgical intervention. Patient's has been medically optimized and cleared for surgery by the anesthesia department.? Through shared decision-making patient would like to proceed with a left reverse total shoulder arthroplasty.? All questions been answered at this time once again he understands the risk benefits complication alternatives the treatment option understanding risk of surgery he agrees to proceed.? All questions answered. Procedure: Patient seen evaluated in the preoperative holding area.? Consent was reviewed and signed with patient once again detailed out the ins and outs of the procedure.? Correct extremity was marked.? Final questions answered.? Patient was seen evaluated by Anesthesia Department once cleared for surgery patient was taken back to the operative suite.? Patient was placed in supine position all bony prominences well-padded patient was appropriate secured to the bed he underwent anesthesia per the anesthesia department once appropriately anesthetized he was then subsequently set into a lazy beachchair position utilizing our standard OR table.? Once we confirmed appropriate positioning we then subsequently prepped and draped the Left upper extremity in standard orthopedic fashion.? Final timeout performed.? Patient received appropriate p reoperative antibiotics. Standard deltopectoral approach was then made just lateral to the coracoid.? I utilized electrocautery to maintain exact hemostasis throughout my dissection.? I subsequently identified the cephalic vein dissected this out carefully and this was taken medially with Cobell retractor and I entered the deltopectoral interval.? Next I released the clavipectoral fascia and at this point time identified the bicep tendon.? This was then isolated and I opened up the bicipital groove within the interval taken this all the way to its insertion site.? I subsequently released the bicep tendon all this was subsequently maintained I then performed under appropriate tension a bicep tenodesis to the pectoralis muscle and fascia with ethibond suture.? The proximal end of the tendon was then resected.? Subscapularis tendon was intact. Significantly retracted supraspinatus and infraspinatus was noted with a small greater tuberosity fracture fragment scarred at the level of the glenoid in the subacromial space..? I then subsequently performed a subscapularis peel off of the lesser tuberosity this was tagged with 0 Vicryl suture and utilized for manipulation throughout the case.? I then subsequently performed a complete release in standard fashion with care to stay directly onto bone and protecting axillary nerve throughout the case.? Standard releases were made along the inferior neck of the humeral head to release any adhered capsule. I then at this point in time release the CA ligament and obtained access to the retracted greater tuberosity fracture fragment there was no mobility of this and this would be an area for possible impingement as result I utilized a Dago grabbing this fracture fragment and utilizing electrocautery excised the bony fragment and freed its adherence off of the rotator cuff. This allowed better mobilization and visualization for the glenoid. Once standard residual release was performed I then protected the entirety of the humeral head and subsequently began with humeral stem prep. Canal finder was used just off the articular margin and canal centralizer was satisfactory.? I then subsequently broached up to appropriate depth and canal fit which was determined to be 12.? 12 was left on and subsequently brought in plan to guide of 30 degrees retroversion was then placed with my cutting guide pinned into appropriate position and making sure my rotation and version was appropriate once satisfactory and pinned in the place the intramedullary canal reamer was then subsequently removed and an oscillating saw was then used to perform my humeral head resection.? This was then subsequently removed.? I then sequentially broached up to appropriate size which was a size 12 mm humeral stem with care to once again maintained my appropriate version.? Once I was satisfied with this I then placed the metal cap and left the stem in place to maintain appropriate integrity of the humeral head while performing work on the glenoid.? Next I then placed appropriate retraction posterior inferior posterior superior as well as anterior.? I had excellent visualization of the glenoid at this point time kit my appropriate position.? I utilized electrocautery and remove the entirety of the labrum so I had full visualization of the glenoid.? At this point in time we had 3D printed guides for appropriate glenoid placement. I placed the initial 3D printing guide which had a lip on the anterior aspect with our guide to match our preoperative plan from patient's CT scan. Once I had appropriate placement of this guide I then placed the 2 guidepins bicortically. Once this was done I removed the guide confirmed that I liked my guidepin placement. Once satisfied with this we then loaded our glenoid reaming which had a loaded positive stop with care not to over ream this was all based on her preoperative planning and. Then subsequently reamed to a positive stop and was satisfied with our positioning. Next we opened up the glenosphere mini baseplate which was then subsequently was impacted in appropriate position and rotation next I then subsequently drilled and measured my central screw and placed in appropriate length 25 mm central screw.? This had excellent fixation and purchase.? At this point time I removed any small residual osteophytes inferiorly and at this point then I subsequently drilled measured and placed 4 locking screws circumferentially around the mini baseplate size screws were 25 mm, 30 mm, 15 mm, 15 mm.? These all had excellent fixation and I satisfied with baseplate position and fixation.? Next I then opened up our glenosphere 36 diameter set this to the appropriate offset B giving us roughly 1.5 mm of offset inferiorly this was then impacted and had excellent fixation.? Utilize a tonsil and by hand tried to remove glenosphere and confirmed it was securely fixed. Shoulder was then thoroughly irrigated. I subsequently placed the appropriate trial humeral tray which was trialed with a standard offset onto my trial 12 mm humeral stem this was subsequently reduced.? Shoulder had excellent range of motion and stability and this had satisfactory range of motion and excellent stability and appropriately tension.? This was determined to be my final implant.? I then subsequently dislocate the shoulder.? I then subsequently removed the trial implantations of the humerus.? Final implants were called and open for of a size 12 mini humeral stem as well as a +0 polyethylene mini humeral tray.? This was opened and set up appropriately on the back table.? I then subsequently impacted the mini humeral stem size 12 and appropriate position which was exact as our trial implantation once again maintaining our appropriate version that was preset and marked and then next I subsequently dried the trunnion and impacted the appropriate humeral tray with +0mm thickness poly.? This was then subsequently reduced and had excellent fixation range of motion and stability with appropriate tensioning.? No evidence of instability was noted.? I then subsequently opened Pulsavac and thoroughly irrigated the incision with 3 L of normal saline.? I then subsequently placed a gram of vancomycin powder for infection prophylaxis.? I then subsequently closed the subcutaneous layer with 0 and 2-0 Vicryl suture a running 3-0 Monocryl was then performed of the skin edges and then reinforce the skin edges with Steri-Strips.? Incisional VAC dara dressing was then applied. Patient was then awakened from anesthesia and taken to PACU in stable condition.? Patient tolerated procedure without any complications. Disposition: Patient taken to PACU in stable condition recovering well will be admitted to the floor postoperatively internal medicine will be on board for medical management.? Patient will be nonweightbearing to the left shoulder.? Sling on in place.? Patient will receive appropriate postoperative pain medication DVT prophylaxis on the floor.? Will receive appropriate discharge structure as well as pain medication DVT prophylaxis.? We will work with PT/OT. Shoulder range of motion will be limited for the first 2 weeks. Maintain dara dressing for 7 days postoperatively.? Patient to follow-up with orthopedics in the office in 2 weeks.
--- NOTE | 2022-10-26 14:31 | PM.PACU ---
PACU note Narrative: Patient taken to PACU in stable condition recovering well. Pain controlled. Sling on in place. Patient's regional anesthesia still on affect unable to assess motor or sensory. Patient states she is starting get some sensation back into her fingertips. Distal pulses are palpable. Hand warm well perfused Trevor dressing on in place is clean dry and intact with good seal. Exam: awake Disposition: discharged
--- NOTE | 2022-10-26 15:46 | P.CONIM_ITS ---
Providers/Reason For Consult Consulting Physician/Specialty*: Dr Contreras, orthopedics Reason for Consult*: Follow-up on medical conditions after surgery Attending Physician: Storm Contreras DO Primary Care Provider: Pablo Bro History of Present Illness History of Present Illness Pleasant 76-year-old lady with history of hypertension, aortic valve replacement (she remembers bioprosthetic) on aspirin, multiple prior orthopedic surgeries, underwent elective left reverse total shoulder replacement surgery uneventfully with reported minimal blood loss. Hospitalist is asked to follow-up regarding her medical problems. Postoperatively she is noted hypertensive, blood pressure up to 206/105, but this has now been improving, currently down to 158/84. He states she is doing a ll right after surgery. Denies any complaints. She states that the procedure was elective, denies any recent problems. She takes aspirin she states due to replaced bioprosthetic aortic valve. Review of Systems Const: Denies: fever(s), chills, body aches or malaise ENMT: Denies: throat pain Card: Denies: chest pain, edema, pre-syncope or dyspnea on exertion Resp: Denies: dyspnea, productive cough, change in phlegm color or hemoptysis GI: Denies: abdominal pain, nausea, vomiting, diarrhea, constipation, hematochezia or melena : Denies: flank pain, urinary frequency or hematuria Musc: Denies: back pain, joint swelling or joint redness Skin/Breast: Denies: rash or new lesions Neuro: Denies: headache(s), numbness in extremities, weakness in extremities, dizziness, confusion or seizure-like activity Medications/Allergies Home Medications Medication Instructions Recorded Confirmed Last Taken Type ergocalciferol (vitamin D2) 1,250 1,250 mcg PO Q14D 03/02/22 10/19/22 10/12/22 History mcg (50,000 unit) capsule gabapentin 300 mg capsule 300 mg PO BID PRN Pain 03/02/22 10/19/22 10/19/22 History lisinopril 20 mg tablet 20 mg PO DAILY 03/02/22 10/19/22 10/25/22 History metoprolol tartrate 25 mg tablet 25 mg PO BID 03/02/22 10/19/22 10/25/22 History sodium bicarbonate 650 mg tablet 650 mg PO BID 03/02/22 10/19/22 10/25/22 History torsemide 10 mg tablet 10 mg PO DAILY 03/02/22 10/19/22 10/25/22 History SLING. #1 ea 03/08/22 07/29/22 Unknown Rx acetaminophen 650 mg 1,300 mg PO Q12H PRN Pain 09/16/22 10/26/22 10/25/22 History tablet,extended release aspirin 81 mg chewable tablet 81 mg PO DAILY 09/16/22 10/19/22 10/11/22 History (Aspirin Childrens) magnesium 250 mg tablet 250 mg PO DAILY 09/16/22 10/19/22 10/25/22 History Allergies Allergy/AdvReac Type Severity Reaction Status Date / Time azithromycin [From Zithromax] Allergy ADR-Vomitin Verified 10/26/22 09:25 g hydrocodone Allergy ADR-Nausea Verified 10/26/22 09:25 Sulfa (Sulfonamide Allergy ALGY-Hives Verified 10/26/22 09:25 Antibiotics) PFSH Acute PFSH: Medical History (Updated 10/26/22 @ 16:59 by Sav Watson MD) Greater tuberosity of humerus fracture HTN (hypertension) Rotator cuff tear Shoulder pain Surgical History History of aortic valve replacement with bioprosthetic valve History of back surgery History of carpal tunnel surgery History of knee replacement Social History (Updated 10/26/22 @ 16:58 by Sav Watson MD) Smoking and tobacco status: never smoked Alcohol intake: never Substance/Drug Use: never Lives independently: Yes Household members: spouse Marital status: Current occupational status: retired Vitals/I&O/Wt Last Vital Signs Temp 97 F L 10/26/22 14:18 Pulse 60 10/26/22 14:47 Resp 16 10/26/22 14:47 BP 203/96 10/26/22 14:47 Pulse Ox 94 10/26/22 14:47 O2 Del Method Room Air 10/26/22 15:09 O2 Flow Rate 8 10/26/22 14:29 10/26/22 10/26/22 10/26/22 06:59 14:59 22:59 Intake Total 1260 / 1260 Output Total 50 / 50 Balance 1210 / 1210 Physical Exam Const: COMMON NORMALS: patient oriented x3 and alert GENERAL APPEARANCE: cooperative ORIENTATION/CONSCIOUSNESS: Yes awake HENMT: COMMON NORMALS: oropharynx normal Neck/C-Spine: COMMON NORMALS: no JVD Resp: COMMON NORMALS: normal respiratory effort and clear to auscultation bilaterally AUSCULTATION: clear to auscultation bilaterally Cardio: COMMON NORMALS: no JVD, regular rhythm, S1 normal heart sound present, S2 normal heart sound present and No murmurs present (Cardio) RHYTHM: regular rhythm HEART SOUNDS: S1 normal heart sound present and S2 normal heart sound present GI: COMMON NORMALS: Normal to inspection, nondistended, normoactive bowel sounds present, Soft to palpation and non-tender PALPATION: Yes Soft to palpation Extremity: COMMON NORMALS: no joint enlargement and no pedal edema OTHER: Left shoulder immobilizer. Mini wound VAC. Neuro: COMMON NORMALS: patient oriented x3 and moves all extremities SENSORIUM/ORIENTATION: Yes alert Skin: COMMON NORMALS: no rashes or lesions noted GENERAL SKIN EXAM: no rashes or lesions noted Data 10/19/22 08:20 A&P Assessment and plan (1) Rotator cuff arthropathy of left shoulder: Postoperative care biopsies. Sling place. Incisional wound VAC to stay on. Nonweightbearing LUE. Tentative plans are to return home. Discussed with orthopedics. Documentation reviewed. Minimal blood loss. Continue pain control as needed. (2) HTN (hypertension): Blood pressure very elevated shortly after surgery. Currently better down to 158/84. Resume lisinopril, metoprolol. Torsemide. Cardiac diet. Follow-up blood pressures. Plan Diastolic aortic valve: Continue aspirin Diagnoses Rotator cuff arthropathy of left shoulder M12.812 HTN (hypertension) I10
--- NOTE | 2022-10-26 16:20 | ANE.PACU2 ---
Inpatient post-anesthesia follow up: Airway intact: Yes Vital signs: Temperature 97 F Pulse Rate 60 Respiratory Rate 16 Blood Pressure 203/96 Pulse Oximetry 94 Oxygen Delivery Me thod Room Air Oxygen Flow Rate 8 Fraction of Inspir ed Oxygen Hydration adequate: Yes Nausea and vomiting: No Pain level: 2 Mental status: Baseline
[2022-10-26] MEDS: sodium chloride 0.9% 1,000 ML 75 ML IV (16:49)
[2022-10-26] MEDS: ondansetron 2 mg/ML SDV 2 mL 4 MG IVP (16:53)
[2022-10-26] MEDS: acetaminophen 500 mg Tablet 1000 MG PO (18:18)
[2022-10-26] MEDS: iron polysaccharide complex 150 mg Capsule PO (18:19)
[2022-10-26] MEDS: calcium carb-vit d 600mg/400unit 1 Tablet 1 EACH PO (18:19)
[2022-10-26] MEDS: sodium bicarbonate 650 mg Tablet PO (18:19)
[2022-10-26] MEDS: metoprolol tartrate 25 mg Tablet PO (18:19)
[2022-10-27] VITALS (9 sets, daily range): BP systolic 131–172; BP diastolic 64–76; PULSE 61–64; RESP 16–18; TEMP 36.3–36.8; O2SAT 91–99
[2022-10-27] MEDS: oxyCODONE 5 mg IR Tab/Cap PO ×3 (02:05→13:42)
[2022-10-27] MEDS: acetaminophen 500 mg Tablet 1000 MG PO ×2 (02:05→11:14)
[2022-10-27] MEDS: ceFAZolin 2,000 MG in sodium chloride 0.9% (plus) 50 ML 100 MG IV ×2 (03:17→11:15)
[2022-10-27 04:26] LABS: Basophils % 0.1 %; Hematocrit 40.3 % (37.0-47.0); Hemoglobin 12.3 g/dL (11.5-15.3); Lymphocytes # 1.5 10^3/uL (0.8-4.8); Mean Corpuscular HGB Conc 30.5 g/dL (30.0-36.0); Mean Corpuscular Hemoglobin 28.4 pg (28.0-34.0); Mean Corpuscular Volume 93.1 fl (81-99); Mean Platelet Volume 10.3 fL (7.4-10.4); Monocytes % 6.7 %; Neutrophils # 11.98 10^3/uL (1.8-7.7); Neutrophils % 82.4 %; Nucleated Red Blood Cells % 0 %; Platelet Count 276 10^3/cmm (130-400); Red Blood Count 4.33 10^6/uL (4.1-5.3); Red Cell Distribution Width 12.9 % (12.1-15.1); White Blood Count 14.5 10^3/uL (4.0-10.0)
[2022-10-27 04:52] LABS: Blood Urea Nitrogen 30 mg/dL (8-23); Calcium 9.1 mg/dL (8.5-10.5); Carbon Dioxide 19 mmol/L (22-29); Chloride 107 mmol/L (98-107); Glucose 148 mg/dL (65-115); Osmolality Calculated 299 mOsm/kg (285-295); Sodium 140 mmol/L (136-145)
[2022-10-27] MEDS: sodium chloride 0.9% 1,000 ML 75 ML IV (05:34)
[2022-10-27] MEDS: aspirin 325 mg EC Tablet PO (08:19)
[2022-10-27] MEDS: lisinopril 20 mg Tablet PO (08:19)
[2022-10-27] MEDS: calcium carb-vit d 600mg/400unit 1 Tablet 1 EACH PO (08:19)
[2022-10-27] MEDS: multivitamin therapeutic Tablet 1 TAB PO (08:19)
[2022-10-27] MEDS: metoprolol tartrate 25 mg Tablet PO (08:19)
[2022-10-27] MEDS: sodium bicarbonate 650 mg Tablet PO (08:19)
[2022-10-27] MEDS: iron polysaccharide complex 150 mg Capsule PO (08:19)
[2022-10-27] MEDS: docusate sodium 100 mg Capsule PO (08:20)
[2022-10-27] MEDS: TORSEmide 20 mg Tablet 10 MG PO (08:20)
--- NOTE | 2022-10-27 08:26 | PM.DCS ---
Discharge Providers Date of Admission: 10/26/22 14:30 Date of Discharge: October 27, 2022 Attending Provider at Admission: Storm Contreras DO Attending Provider at Discharge: Storm Contreras DO Primary Care Provider: Pablo Bro Diagnoses at Discharge Discharge Diagnosis (1) Rotator cuff arthropathy of left shoulder: Status: Acute (2) HTN (hypertension): Status: Acute Reason for Visit Reason for Visit: S42.253A Discharge Data Studies Completed and Pending Completed Studies During Hospitalization Category Date Time Status XR shoulder LT min 2V* 13783 Routine Exams 10/26/22 14:15 Completed Pending at discharge Category Date Time Status Basic Metabolic Panel AM LABS Lab 10/28/22 04:00 Ordered Basic Metabolic Panel AM LABS Lab 10/29/22 04:00 Ordered Complete Blood Count w/Auto AM LABS Lab 10/28/22 04:00 Ordered Complete Blood Count w/Auto AM LABS Lab 10/29/22 04:00 Ordered Radiology Impressions Shoulder X-Ray 10/26/22 14:15 IMPRESSION: No acute change at this time.. Laboratory Results WBC 14.5 10^3/uL (4.0-10.0) H 10/27/22 03:32 RBC 4.33 10^6/uL (4.1-5.3) 10/27/22 03:32 Hgb 12.3 g/dL (11.5-15.3) 10/27/22 03:32 Hct 40.3 % (37.0-47.0) 10/27/22 03:32 MCV 93.1 fl (81-99) 10/27/22 03:32 MCH 28.4 pg (28.0-34.0) 10/27/22 03:32 MCHC 30.5 g/dL (30.0-36.0) 10/27/22 03:32 RDW 12.9 % (12.1-15.1) 10/27/22 03:32 Plt Count 276 10^3/cmm (130-400) 10/27/22 03:32 MPV 10.3 fL (7.4-10.4) 10/27/22 03:32 Neut % (Auto) 82.4 % 10/27/22 03:32 Lymph % (Auto) 10.0 % 10/27/22 03:32 [place] % (Auto) 6.7 % 10/27/22 03:32 Eos % (Auto) 0.0 % 10/27/22 03:32 Baso % (Auto) 0.1 % 10/27/22 03:32 Neut # (Auto) 11.98 10^3/uL (1.8-7.7) H 10/27/22 03:32 Lymph # (Auto) 1.5 10^3/uL (0.8-4.8) 10/27/22 03:32 [place] # (Auto) 1.0 10^3/uL (0.2-0.9) H 10/27/22 03:32 Eos # (Auto) 0.0 10^3/uL (0.0-0.8) 10/27/22 03:32 Baso # (Auto) 0.0 10^3/uL (0.0-0.1) 10/27/22 03:32 Nucleated RBC % (auto) 0 % 10/27/22 03:32 Nucleated RBCs # 0.0 /100WBC 10/27/22 03:32 Sodium 140 mmol/L (136-145) 10/27/22 03:32 Potassium 5.0 mmol/L (3.5-5.1) 10/27/22 03:32 Chloride 107 mmol/L (98-107) 10/27/22 03:32 Carbon Dioxide 19 mmol/L (22-29) L 10/27/22 03:32 Anion Gap 19.0 (5-19) 10/27/22 03:32 BUN 30 mg/dL (8-23) H 10/27/22 03:32 Creatinine 1.9 mg/dL (0.5-0.9) H 10/27/22 03:32 GFR Calculation Not Reportable 10/27/22 03:32 Glucose 148 mg/dL (65-115) H 10/27/22 03:32 Calculated Osmolality 299 mOsm/kg (285-295) H 10/27/22 03:32 Calcium 9.1 mg/dL (8.5-10.5) 10/27/22 03:32 Urine Color Light yellow (Yellow) 10/19/22 08:30 Urine Appearance Clear (CLEAR) 10/19/22 08:30 Urine pH 5 (5-7) 10/19/22 08:30 Ur Specific [place] 1.015 (1.005-1.030) 10/19/22 08:30 Urine Protein Neg (Negative) 10/19/22 08:30 Urine Glucose (UA) Norm (Normal) 10/19/22 08:30 Urine Ketones Negative (Negative) 10/19/22 08:30 Urine Blood Neg (Negative) 10/19/22 08:30 Urine Nitrate Negative (Negative) 10/19/22 08:30 Urine Bilirubin Neg (Negative) 10/19/22 08:30 Urine Urobilinogen Norm mg/dL (Negative) 10/19/22 08:30 Ur Leukocyte Esterase Trace (Negative) H 10/19/22 08:30 Urine RBC Rare /hpf (0-2) 10/19/22 08:30 Urine WBC 5-10 /hpf (0-5) H 10/19/22 08:30 Ur Squamous Epith Cells Rare /hpf (0-5) 10/19/22 08:30 Amorphous Sediment Not Reportable 10/19/22 08:30 Urine Bacteria Trace /hpf (NONE) 10/19/22 08:30 Hyaline Casts 0-4 /lpf H 10/19/22 08:30 Urine Mucus N /hpf 10/19/22 08:30 Blood Type O Positive 10/26/22 09:45 Rho(D) Type Positive 10/26/22 09:45 Antibody Screen Negative 10/26/22 09:45 Vitals Last Vital Signs Temp 97.3 F L 10/27/22 08:00 Pulse 61 10/27/22 08:00 Resp 16 10/27/22 08:19 BP 131/64 10/27/22 08:00 Pulse Ox 97 10/27/22 08:00 O2 Del Method Room Air 10/27/22 08:00 O2 Flow Rate 8 10/26/22 14:29 FiO2 21 10/26/22 21:30 Discharge Plan Discharge Patient Disposition: Home Condition: Stable Prescriptions: No Action (DME) SLING. See Rx Instructions .ROUTE .MEDSUPPLY Qty: 1 0RF Rx Instructions: As directed lisinopril 20 mg tablet 20 mg PO DAILY torsemide 10 mg tablet 10 mg PO DAILY sodium bicarbonate 650 mg tablet 650 mg PO BID gabapentin 300 mg capsule 300 mg PO BID PRN (Reason: Pain) ergocalciferol (vitamin D2) 1,250 mcg (50,000 unit) capsule 1,250 mcg PO Q14D metoprolol tartrate 25 mg tablet 25 mg PO BID acetaminophen [Tylenol Arthritis] 650 mg Tablet Extended Release 1,300 mg PO Q12H PRN (Reason: Pain) aspirin [Aspirin Childrens] 81 mg Tablet,Chewable 81 mg PO DAILY magnesium 250 mg Tablet 250 mg PO DAILY Patient Instructions: Opioid Safety Coding Level of Care Code Acute Code for [facility] Fwd Diagnoses Rotator cuff arthropathy of left shoulder M12.812 HTN (hypertension) I10
--- NOTE | 2022-10-27 09:58 | P.PN_ITS ---
Subjective Subjective: She states she is doing well. No issues overnight. She is being cleared to return home by orthopedics and is happy about that. Vitals/I&O/Wt Last Vital Signs Temp 97.3 F L 10/27/22 08:00 Pulse 61 10/27/22 08:00 Resp 16 10/27/22 08:19 BP 131/64 10/27/22 08:00 Pulse Ox 97 10/27/22 08:00 O2 Del Method Room Air 10/27/22 08:00 O2 Flow Rate 8 10/26/22 14:29 FiO2 21 10/26/22 21:30 10/26/22 10/27/22 10/27/22 22:59 06:59 14:59 Intake Total 400 / 1660 1006.25 / 2666.25 480 / 480 Balance 400 / 1610 1006.25 / 2616.25 480 / 480 Physical Exam Const: COMMON NORMALS: patient oriented x3 and alert GENERAL APPEARANCE: cooperative ORIENTATION/CONSCIOUSNESS: Yes awake HENMT: COMMON NORMALS: oropharynx normal Neck/C-Spine: COMMON NORMALS: no JVD Resp: COMMON NORMALS: normal respiratory effort and clear to auscultation bila terally AUSCULTATION: clear to auscultation bilaterally Cardio: COMMON NORMALS: no JVD, regular rhythm, S1 normal heart sound present, S2 normal heart sound present and No murmurs present (Cardio) RHYTHM: regular rhythm HEART SOUNDS: S1 normal heart sound present and S2 normal heart sound present GI: COMMON NORMALS: Normal to inspection, nondistended, normoactive bowel sounds present, Soft to palpation and non-tender PALPATION: Yes Soft to palpation Extremity: COMMON NORMALS: no joint enlargement and no pedal edema OTHER: Left shoulder immobilizer. Mini wound VAC. Neuro: COMMON NORMALS: patient oriented x3 and moves all extremities SENSORIUM/ORIENTATION: Yes alert Skin: COMMON NORMALS: no rashes or lesions noted GENERAL SKIN EXAM: no rashes or lesions noted Data 10/27/22 03:32 10/27/22 03:32 A&P Assessment and plan (1) Rotator cuff arthropathy of left shoulder: Postoperative care biopsies. Sling place. Incisional wound VAC to stay on. Nonweightbearing LUE. Tentative plans are to return home. Orthopedics documentation reviewed. Minimal blood loss. Hb 12.3. Continue pain control as needed. Discussed to avoid nsaids. D/W case management. (2) HTN (hypertension): Blood pressure very elevated shortly after surgery. Currently better down to 131/64. Resume lisinopril, metoprolol. Torsemide. Cardiac diet. She states that home blood pressures usually run better. Instructed to keep track of her blood pressures and follow-up with primary provider. Plan Diastolic aortic valve: Continue aspirin ROSA: resume nightly CPAP Attestations Medical Necessity Statement*: She is returning home. Diagnoses Rotator cuff arthropathy of left shoulder M12.812 HTN (hypertension) I10
--- NOTE | 2022-10-27 10:37 | PM.DCS ---
Discharge Providers Date of Admission: 10/26/22 14:30 Date of Discharge: October 27, 2022 Attending Provider at Admission: Storm Contreras DO Attending Provider at Discharge: Storm Contreras DO Consults: Dr. Watson?hospitalist internal medicine Primary Care Provider: Pablo Bro Diagnoses at Discharge Discharge Diagnosis (1) Rotator cuff arthropathy of left shoulder: Status: Acute (2) HTN (hypertension): Status: Acute Reason for Visit Reason for Visit: S42.253A Brief History: Left reverse total shoulder arthroplasty Hospital Course Hospital Course Patient was brought to the hospital through the preoperative holding area consent was reviewed and signed with patient with plan for a left reverse total shoulder arthroplasty.? Patient had severe left shoulder chronic rotator cuff arthropathy.? Once cleared for surgery was taken back to the operative suite underwent anesthesia per the anesthesia department without any issues.? Patient subsequently underwent a left reverse total shoulder arthroplasty with a biceps tenodesis without any complications.? Patient subsequently was taken to PACU in stable condition recovered well.? Patient was admitted to the floor postoperatively.? Internal medicine was consulted for medical management assistance patient received appropriate perioperative antibiotics as well as pain medication, DVT prophylaxis.? Patient maintain sling during hospitalization worked with PT/OT nonweightbearing to the left shoulder.? Dara dressing incisional VAC was noted in place and will be left on for 5 to 7 days postoperatively patient given appropriate instructions. It was determined on postoperative day 1 the patient was stable for discharge.? Plan for discharge home with home health care.? Patient will receive appropriate discharge instructions as well as pain medication, DVT prophylaxis postoperatively. Given patient's UTI history we will place her on a prophylactic ciprofloxacin antibiotic which helped with her UTI preoperatively. We will follow-up with Dr. Contreras in the office in 2 weeks.? Patient understands and contact the office for any questions or concerns.? All questions have been answered at this time. Physical Exam Narrative: Examination left shoulder: Examination left shoulder in a sling with abduction pillow. Patient's dara dressings on in place with good seal and only 2 small punctate areas of drainage normal postoperative ecchymosis and swelling noted patient is able to wiggle her fingers. Axillary motor and sensory intact. Did not have patient actively range shoulder she is able to gently range her elbow as well as wrist. Gross motor and sensory intact left upper extremity. Discharge Data Studies Completed and Pending Completed Studies During Hospitalization Category Date Time Status XR shoulder LT min 2V* [id number] Routine Exams 10/26/22 14:15 Completed Pending at discharge Category Date Time Status Basic Metabolic Panel AM LABS Lab 10/28/22 04:00 Ordered Basic Metabolic Panel AM LABS Lab 10/29/22 04:00 Ordered Complete Blood Count w/Auto AM LABS Lab 10/28/22 04:00 Ordered Complete Blood Count w/Auto AM LABS Lab 10/29/22 04:00 Ordered Radiology Impressions Shoulder X-Ray 10/26/22 14:15 IMPRESSION: No acute change at this time.. Laboratory Results WBC 14.5 10^3/uL (4.0-10.0) H 10/27/22 03:32 RBC 4.33 10^6/uL (4.1-5.3) 10/27/22 03:32 Hgb 12.3 g/dL (11.5-15.3) 10/27/22 03:32 Hct 40.3 % (37.0-47.0) 10/27/22 03:32 MCV 93.1 fl (81-99) 10/27/22 03:32 MCH 28.4 pg (28.0-34.0) 10/27/22 03:32 MCHC 30.5 g/dL (30.0-36.0) 10/27/22 03:32 RDW 12.9 % (12.1-15.1) 10/27/22 03:32 Plt Count 276 10^3/cmm (130-400) 10/27/22 03:32 MPV 10.3 fL (7.4-10.4) 10/27/22 03:32 Neut % (Auto) 82.4 % 10/27/22 03:32 Lymph % (Auto) 10.0 % 10/27/22 03:32 [place] % (Auto) 6.7 % 10/27/22 03:32 Eos % (Auto) 0.0 % 10/27/22 03:32 Baso % (Auto) 0.1 % 10/27/22 03:32 Neut # (Auto) 11.98 10^3/uL (1.8-7.7) H 10/27/22 03:32 Lymph # (Auto) 1.5 10^3/uL (0.8-4.8) 10/27/22 03:32 [place] # (Auto) 1.0 10^3/uL (0.2-0.9) H 10/27/22 03:32 Eos # (Auto) 0.0 10^3/uL (0.0-0.8) 10/27/22 03:32 Baso # (Auto) 0.0 10^3/uL (0.0-0.1) 10/27/22 03:32 Nucleated RBC % (auto) 0 % 10/27/22 03:32 Nucleated RBCs # 0.0 /100WBC 10/27/22 03:32 Sodium 140 mmol/L (136-145) 10/27/22 03:32 Potassium 5.0 mmol/L (3.5-5.1) 10/27/22 03:32 Chloride 107 mmol/L (98-107) 10/27/22 03:32 Carbon Dioxide 19 mmol/L (22-29) L 10/27/22 03:32 Anion Gap 19.0 (5-19) 10/27/22 03:32 BUN 30 mg/dL (8-23) H 10/27/22 03:32 Creatinine 1.9 mg/dL (0.5-0.9) H 10/27/22 03:32 GFR Calculation Not Reportable 10/27/22 03:32 Glucose 148 mg/dL (65-115) H 10/27/22 03:32 Calculated Osmolality 299 mOsm/kg (285-295) H 10/27/22 03:32 Calcium 9.1 mg/dL (8.5-10.5) 10/27/22 03:32 Urine Color Light yellow (Yellow) 10/19/22 08:30 Urine Appearance Clear (CLEAR) 10/19/22 08:30 Urine pH 5 (5-7) 10/19/22 08:30 Ur Specific [place] 1.015 (1.005-1.030) 10/19/22 08:30 Urine Protein Neg (Negative) 10/19/22 08:30 Urine Glucose (UA) Norm (Normal) 10/19/22 08:30 Urine Ketones Negative (Negative) 10/19/22 08:30 Urine Blood Neg (Negative) 10/19/22 08:30 Urine Nitrate Negative (Negative) 10/19/22 08:30 Urine Bilirubin Neg (Negative) 10/19/22 08:30 Urine Urobilinogen Norm mg/dL (Negative) 10/19/22 08:30 Ur Leukocyte Esterase Trace (Negative) H 10/19/22 08:30 Urine RBC Rare /hpf (0-2) 10/19/22 08:30 Urine WBC 5-10 /hpf (0-5) H 10/19/22 08:30 Ur Squamous Epith Cells Rare /hpf (0-5) 10/19/22 08:30 Amorphous Sediment Not Reportable 10/19/22 08:30 Urine Bacteria Trace /hpf (NONE) 10/19/22 08:30 Hyaline Casts 0-4 /lpf H 10/19/22 08:30 Urine Mucus N /hpf 10/19/22 08:30 Blood Type O Positive 10/26/22 09:45 Rho(D) Type Positive 10/26/22 09:45 Antibody Screen Negative 10/26/22 09:45 Procedures Performed Left reverse total shoulder arthroplasty Vitals Last Vital Signs Temp 97.3 F L 10/27/22 08:00 Pulse 61 10/27/22 08:00 Resp 16 10/27/22 08:19 BP 131/64 10/27/22 08:00 Pulse Ox 97 10/27/22 08:00 O2 Del Method Room Air 10/27/22 08:00 O2 Flow Rate 8 10/26/22 14:29 FiO2 21 10/26/22 21:30 Discharge Plan Discharge Patient Disposition: Home Condition: Stable Prescriptions: New aspirin 325 mg tablet 325 mg PO DAILY 14 Days Qty: 14 0RF Colace 100 mg capsule 100 mg PO DAILY PRN (Reason: constipation) 10 Days Qty: 10 0RF ondansetron 4 mg tablet,disintegrating 4 mg PO DAILY 5 Days Qty: 5 0RF oxycodone 5 mg tablet 5 mg PO Q6H PRN (Reason: pain) 7 Days Qty: 28 0RF calcium carbonate-vitamin D3 600 mg-10 mcg (400 unit) Tablet 1 ea PO BID 30 Days Qty: 60 0RF ciprofloxacin HCl 500 mg tablet 500 mg PO Q12H 14 Days Qty: 28 0RF Continued (DME) SLING. See Rx Instructions .ROUTE .MEDSUPPLY Qty: 1 0RF Rx Instructions: As directed lisinopril 20 mg tablet 20 mg PO BEDTIME torsemide 10 mg tablet 10 mg PO QAM sodium bicarbonate 650 mg tablet 650 mg PO BID gabapentin 300 mg capsule 300 mg PO BID PRN (Reason: Pain) ergocalciferol (vitamin D2) 1,250 mcg (50,000 unit) capsule 1,250 mcg PO Q14D metoprolol tartrate 25 mg tablet 25 mg PO BID albuterol sulfate 90 mcg/actuation HFA aerosol inhaler 2 puff INHALATION Q6H PRN (Reason: Shortness Of Breath) turmeric 400 mg Capsule 400 mg PO BID acetaminophen 650 mg Tablet Extended Release 1,300 mg PO Q12H PRN (Reason: Pain) aspirin [Aspirin Childrens] 81 mg Tablet,Chewable 81 mg PO QAM magnesium 250 mg Tablet 250 mg PO QAM Discharge Orders: Discharge Order (Routine); Ordered 10/27/22 Ordered By: Sav Watson Other Ambulatory Orders: Physical Therapy Outpatient in Home Eval and Treat Other (Order) Facility: [facility] - Location: Physical Therapy Ordered By: Sav Watson Referrals: Pablo Bro [Primary Care Provider] - 11/01/22 1:20 pm Storm Contreras DO [Physician] - 11/10/22 2:45 pm Discharge Diet: Advance as tolerated Discharge Activity: Limit activity as instructed and As per PT/OT instructions Patient Instructions: Ciprofloxacin (By mouth), Oxycodone/Acetaminophen (By mouth), Aspirin (By mouth), Ondansetron (By mouth), Joint Replacement Surgery (GEN), Opioid Safety Activity Restrictions/Additional Instructions: Orthopedic discharge instructions: Patient should leave dara dressing on in place for 7 days after that may remove and peel dressing off. Steri-Strips will be on and in place leave these on over the incision. At this point okay to run water over incision and clean it with warm soapy water. Pat dry and redress with a dry dressing. No baths or soaks Keep incision clean dry and intact. Take pain medication as prescribed Take antinausea medication as prescribed Supplement with Citracal vitamin D for bone health and healing Take Colace as needed for constipation Follow-up in the orthopedic office in 2 weeks Nonweightbearing left shoulder Maintain sling until follow-up, okay to come out of sling for hygiene as well as elbow and wrist range of motion No active range of motion left shoulder Take antibiotic as prescribed for infection prophylaxis secondary to recurrent UTIs Discharge Attestations Time Spent in Discharge Care*: greater than 30 min Quality Metrics Clinical Quality Measures [ No reported AMI, CVA or VTE this stay] Coding Level of Care Code Acute Code for [facility] Fwd Diagnoses Rotator cuff arthropathy of left shoulder M12.812 HTN (hypertension) I10 Time Spent (min) 35
--- NOTE | 2022-10-27 11:11 | PC.CHAP ---
Pastoral Care Encounter/Spiritual Assessment Type of Contact [] Declined city planner visit [] Patient/Family/Request visit [] Outpatient visit [] Follow-up visit [] Physician referral [] Code/Alert [x] Routine visit [] Staff referral [] Actively dying [] Patient sleeping [] Family support [] [] Out of room [] Palliative care [] [x] Receiving care in room [] Pre-surgical visit [] Trauma [] Long length of stay [] ICU visit [] Other: Relational/Emotional Strength [x] Patient feels connected with others/family/visitors/staff [] Distress [] Loneliness/isolation [] Abandonment Spirituality of Patient [x] Person of [place] [] Attends [employer] of their [place] [x] Believes in Prayer [] Reads Bible or Lutheran materials [] There are Spiritual issues to be addressed Glass Melt Operator Interventions [x] Prayer [x] Active listening [x] Non-anxious presence [x] Spiritual/emotional support [] Crisis/trauma care [x] Spiritual counseling [] Bereavement support [] Provided bereavement packet [] Provided Bible/devotional materials [] Provided toy/stuffed animal, coloring book to patient or family member [] Provided Communion [] Anointing/[place] [] Salvation [x] Completed spiritual assessment [] Other: Impact on Illness or Injury [] Angry [] Fearful [] Anxious [] Often cries [] Exhaustion [] Unable to work [] Unable to attend restorationist [] Unable to walk/stand [] Unable to read [] Unable to drive [] Unable to eat/drink [] Unable to sleep [] Unable to be with family [] Patient intubated [] Other: Summary surgery on mely went well has a good attitude well go home Time spent with patient 10 mins
[2022-10-27] MEDS: TRAMadol 50 mg Tablet PO (11:15)
== END 2022-10-27 14:33 | disposition home or self-care (01) ==
LOC: MEDSURG 14:30
PROVIDERS: Anesthesiology; Admitting Provider Student in an Organized Health Care Education/Training Program; PCP Family Medicine; Visit Provider Student in an Organized Health Care Education/Training Program
PROC: (CPT 23472; principal; 2022-10-26 10:35)
PROC: (CPT 23430; 2022-10-26 10:35)
DX: M12.812 Other specific arthropathies, not elsewhere classified, left shoulder (principal); Z79.82 Long term (current) use of aspirin; I10 Essential (primary) hypertension; Z87.440 Personal history of urinary (tract) infections
CPT/HCPCS: 23472; 36415; 73030; 80048; 81001; 85025; 86850; 86900; 94660; 97165; C1776; G0378; J0131; J0690; J1100; J1885; J2405; J2704; J2710; J2795; J3010; J3370; J3490; J3535; J7030

== ENCOUNTER → 2022-11-10 14:33 | Outpatient (BNVA) | payer MEDICARE, SELFPAY | PROVIDERS: PCP Family Medicine; Visit Provider Student in an Organized Health Care Education/Training Program | DX: Z96.612 Presence of left artificial shoulder joint (principal); S42.142A Displaced fracture of glenoid cavity of scapula, left shoulder, initial encounter for closed fracture; S42.152A Displaced fracture of neck of scapula, left shoulder, initial encounter for closed fracture; X58.XXXA Exposure to other specified factors, initial encounter; M12.812 Other specific arthropathies, not elsewhere classified, left shoulder | CPT/HCPCS: 73030; 99024 ==

== ENCOUNTER → 2022-11-24 08:39 | Outpatient (BNVA) | payer MEDICARE, SELFPAY | PROVIDERS: PCP Family Medicine; Visit Provider Student in an Organized Health Care Education/Training Program | DX: Z96.612 Presence of left artificial shoulder joint (principal); S42.142A Displaced fracture of glenoid cavity of scapula, left shoulder, initial encounter for closed fracture; S42.152A Displaced fracture of neck of scapula, left shoulder, initial encounter for closed fracture; X58.XXXA Exposure to other specified factors, initial encounter | CPT/HCPCS: 73030; 99024 ==

== ENCOUNTER → 2022-12-08 12:47 | Outpatient (BNVA) | payer MEDICARE, SELFPAY | PROVIDERS: PCP Family Medicine; Visit Provider Student in an Organized Health Care Education/Training Program | DX: Z96.612 Presence of left artificial shoulder joint; S42.152A Displaced fracture of neck of scapula, left shoulder, initial encounter for closed fracture; X58.XXXA Exposure to other specified factors, initial encounter | CPT/HCPCS: 73030; 99024 ==

== ENCOUNTER → 2023-01-10 10:24 | Outpatient (BNVA) | payer MEDICARE, SELFPAY | PROVIDERS: PCP Family Medicine; Visit Provider Student in an Organized Health Care Education/Training Program | DX: S42.143A Displaced fracture of glenoid cavity of scapula, unspecified shoulder, initial encounter for closed fracture; S42.153A Displaced fracture of neck of scapula, unspecified shoulder, initial encounter for closed fracture; Z96.612 Presence of left artificial shoulder joint; X58.XXXA Exposure to other specified factors, initial encounter | CPT/HCPCS: 73030; 99024 ==

== ENCOUNTER → 2023-03-24 10:37 | Outpatient (BNVA) | payer MEDICARE, SELFPAY | PROVIDERS: PCP Family Medicine; Visit Provider Student in an Organized Health Care Education/Training Program | DX: Z96.612 Presence of left artificial shoulder joint; S42.142D Displaced fracture of glenoid cavity of scapula, left shoulder, subsequent encounter for fracture with routine healing; S42.152D Displaced fracture of neck of scapula, left shoulder, subsequent encounter for fracture with routine healing; X58.XXXD Exposure to other specified factors, subsequent encounter | CPT/HCPCS: 73030; 99213 ==

== ENCOUNTER → 2023-10-10 08:59 | Outpatient (BNVA) | payer MEDICARE, SELFPAY | PROVIDERS: PCP Family Medicine; Visit Provider Student in an Organized Health Care Education/Training Program | DX: Z96.612 Presence of left artificial shoulder joint (principal); S42.142D Displaced fracture of glenoid cavity of scapula, left shoulder, subsequent encounter for fracture with routine healing; S42.152D Displaced fracture of neck of scapula, left shoulder, subsequent encounter for fracture with routine healing; X58.XXXD Exposure to other specified factors, subsequent encounter | CPT/HCPCS: 73030; 99213 ==